=== PATIENT | female | born 2000 | race African-American/Black ===

== ENCOUNTER 2022-08-27 19:46 | Inpatient (IN) | payer OTHER, MEDICAID, SELFPAY ==
[2022-08-27 22:05] VITALS: BMI 28.9
--- NOTE | 2022-08-27 22:06 | LDADM ---
This patient, Brittney Stallings, was admitted to Labor/Delivery/Recovery 105 on 08/27/22 at 19:46. Plans for labor, pain management and were discussed with patient. Patient/family oriented to hospital policies and general routines including ID bracelet, bed and alarms, visiting hours, pain management, procedures, bathroom and other care routines, personal items, smoking policy, room service/diet and guest tray routines, security routines, and visiting hours. Patient/Family are encouraged to report perceived risks to care and to ask questions if they do not understand what they are told or what they should do. See OBIX for further documentation.
[2022-08-27 22:21] VITALS: BP 136/84; PULSE 68; RESP 18; TEMP 36.3
[2022-08-27] MEDS: LACTATED RINGERS 1,000 ML 125 ML IV CONT (22:30)
[2022-08-27 23:10] LABS: Basophils Percent Auto 0.3 % (0.2-1.2); Eosinophils Absolute Auto 0.2 K/mm3 (0-0.3); Hematocrit 35.1 % (37.0-47.0); Hemoglobin 11.8 g/dL (12.0-15.0); Immature Granulocyte Absolute 0.07 K/mm3 (0.00-0.031); Immature Granulocyte Percent A 0.9 % (0-0.5); Lymphocytes Absolute Auto 2.06 K/mm3 (0.9-3.2); Lymphocytes Percent Auto 26.7 % (18.3-44.2); Mean Corpuscular HGB Conc 33.6 g/dl (32-36); Mean Corpuscular Hemoglobin 30.5 pg (26-34); Mean Corpuscular Volume 90.7 fl (80-100); Monocytes Absolute Auto 0.5 K/mm3 (0.1-0.6); Monocytes Percent Auto 6.2 % (2.6-8.5); Neutrophils Absolute Auto 4.9 K/mm3 (1.3-6.7); Neutrophils Percent Auto 62.9 % (45.5-73.1); Platelet Count Result 161 k/mm3 (150-375); Red Blood Count 3.87 M/mm3 (4.2-5.4); Red Cell Distribution Width 12.6 % (11.5-14.5); White Blood Count 7.7 K/mm3 (4.5-10.0)
[2022-08-27 23:48] VITALS: PULSE 77; O2SAT 100
[2022-08-27 23:52] VITALS: PULSE 74; O2SAT 99
--- NOTE | 2022-08-27 23:52 | WPDANESEPP ---
Anes - Eval Pre Procedure Procedure: labor epidural Date/Time: 08/27/22 23:52 Surgeon: frankie Preop Diagnosis: pain during labor Pre Op Diagnosis: SROM Patient Data Age: 22 Gender: F Height: 1.6 m Weight: 74 kg Last Vital Signs Pulse 68 08/27/22 22:21 BP 136/84 08/27/22 22:21 Pulse Ox 100 08/27/22 23:48 O2 Del Method Room Air 08/27/22 22:05 Allergies Allergy/AdvReac Type Severity Reaction Status Date / Time No Known Allergies Allergy Mild Verified 07/07/07 01:57 Home Medications Medication Instructions Recorded Confirmed Type Classic 1 tab-cap PO DAILY 08/26/22 08/27/22 History aspirin 81 mg capsule 81 mg PO DAILY 08/26/22 08/26/22 History quetiapine 200 mg tablet (Seroquel) 200 mg PO HS 08/26/22 08/26/22 History Laboratory Tests 08/27/22 22:16 WBC 7.7 K/mm3 (4.5-10.0) RBC 3.87 L M/mm3 (4.2-5.4) Hgb 11.8 L g/dL (12.0-15.0) Hct 35.1 L % (37.0-47.0) MCV 90.7 fl (80-100) MCH 30.5 pg (26-34) MCHC 33.6 g/dl (32-36) RDW 12.6 % (11.5-14.5) Plt Count 161 k/mm3 (150-375) MPV 12.0 H fl (7.4-10.4) Immature Gran % (Auto) 0.9 H % (0-0.5) Neut % (Auto) 62.9 % (45.5-73.1) Lymph % (Auto) 26.7 % (18.3-44.2) [place] % (Auto) 6.2 % (2.6-8.5) Eos % (Auto) 3.0 % (0-4.4) Baso % (Auto) 0.3 % (0.2-1.2) Lymph # (Auto) 2.06 K/mm3 (0.9-3.2) [place] # (Auto) 0.5 K/mm3 (0.1-0.6) Eos # (Auto) 0.2 K/mm3 (0-0.3) Baso # (Auto) 0.0 K/mm3 (0.0-0.1) Abs Immat Gran (auto) 0.07 H K/mm3 (0.00-0.031) Absolute Neuts (auto) 4.9 K/mm3 (1.3-6.7) Absolute Nucleated RBC 0.0 K/mm3 (0.0-0.012) Nucleated RBC % 0.0 % (0.0-0.2) RPR Pending Patient hx anesthesia problems: none Family hx anesthesia problems: none Results Review: All pre-operative results and documents have been reviewed as part of the pre-operative evaluation. [facility] Past Medical History Medical History (Updated 08/27/22 @ 23:[address] CRNA) IUP (intrauterine ), incidental Family History Family History (Updated 08/26/22 @ 13:40 by Pippa Wing RN) Grandparent Cancer Father Malignant neoplasm of prostate Social History Social History Smoking status: Never smoker Substance use: never Lack of Transportation: No Lack of Food: Never True Current Housing: I Have Housing Concerned About Future Housing: No Difficulty Paying Gas/Electric Bills: No Difficulty Paying for Meds: No Currently Unemployed: YES Education: Bachelor's Degree Difficulty w/ Childcare or Family Care: No Spiritual care concerns: No Exam Day of Procedure 08/27/22 23:52
[2022-08-27 23:54] VITALS: BP 133/95; PULSE 80
[2022-08-27 23:57] VITALS: PULSE 81; O2SAT 100
[2022-08-28] VITALS (121 sets, daily range): BP systolic 103–178; BP diastolic 60–160; PULSE 25–152; RESP 14–18; TEMP 36.3–37.6; O2SAT 83–100
[2022-08-28] MEDS: LACTATED RINGERS 1,000 ML 125 ML IV CONT (00:17)
[2022-08-28] MEDS: FAMOTIDINE 20 MG/2 ML VIAL IV PUSH (01:18)
[2022-08-28] MEDS: diphenhydrAMINE HCl INJ 50 MG/ML VIAL 25 MG IV PUSH (03:34)
[2022-08-28] MEDS: OXYTOCIN 30 UNITS/NS 500 ML 30 UNITS/500 ML BAG 999 UNITS IV CONT (05:50)
--- NOTE | 2022-08-28 06:17 | P.PCNOB_ITS ---
OB - Delivery Note Procedure Delivery date: 08/28/22 Procedure: Induction method: None Delivery monitor: External FHT and External Uterine Route of delivery: Episiotomy description: None Laceration Description: Superficial Specimen: No Quantitative Blood Loss (ml): 100 Anesthesia type: Epidural Disposition: Floor Narrative: Patient arrived in spontaneous labor. She was given an epidural for analgesia and progressed to complete dilation. CNM to bedside. Patient began pushing with contractions and made steady progress to . She delivered the head over an intact perineum after which there was excellent restitution. There was easy delivery of the anterior and posterior shoulders. After the remainder of the was delivered he was placed on the maternal abdomen and care was transferred to the pediatric team. After 1 minute of life the cord was doubly clamped and cut. Cord blood, cord gases, and cord segment were obtained. Two superficial small lacerations were noted but did not require repair as they were hemostatic. The placenta delivered easily and uterine tone was firm. There was excellent hemostasis. All delivery counts correct. Mother and skin to skin in the delivery room [place] Baby Date of : 08/28/22 Time of : 05:49 Weeks of gestation at delivery: 38 (38.6) gender: Male Weight (pounds): 0 (unavailable at the time of note. infant skin to skin with mother. ) presentation: vertex position: Right Occiput Anterior Placenta delivery description: Spontaneous Cord Vessel Description: 3 Vessels, Clamped/Cut, Delayed Cord Clamping and Other (marginal cord insertion) score one minute: 8 score five minutes: 9
--- NOTE | 2022-08-28 06:17 | WPDOBADMIT ---
Obstetrics - Admit Note Admission Note: record reviewed. No pertinent additions to the history and/or any subsequent changes in the physical findings that are not consistent with the expected course of the were found. Additions to the history and/or subsequent changes in the physical findings follow. None.
[2022-08-28] MEDS: OXYTOCIN 30 UNITS/NS 500 ML 30 UNITS/500 ML BAG 125 UNITS IV CONT (06:23)
--- NOTE | 2022-08-28 06:27 | PM.OBDSVD ---
DS: Admitting Diagnosis Discharge Date 08/30/2022 Admitting Diagnosis labor at term DS: Discharge Diagnosis Discharge Diagnosis (1) (normal spontaneous vaginal delivery): Code(s): O80 - Encounter for full-term uncomplicated delivery Status: Acute (2) Mother currently breast-feeding: Code(s): Z39.1 - Encounter for care and examination of lactating mother Status: Acute (3) Marijuana use during : Code(s): O99.320 - Drug use complicating , unspecified trimester; F12.90 - Cannabis use, unspecified, uncomplicated Status: Acute (4) Bipolar disease in : Qualifiers: Trimester: third trimester Qualified Code(s): O99.343 - Other mental disorders complicating , third trimester; F31.9 - Bipolar disorder, unspecified Code(s): O99.340 - Other mental disorders complicating , unspecified trimester; F31.9 - Bipolar disorder, unspecified Status: Acute Assessment and Plan: Sees psychiatrist q 2 weeks. s/p care coordination consult (5) History of suicide attempt: Code(s): Z91.51 - Personal history of suicidal behavior Status: Acute OB - DS: Summary Hospital Course Hospital Course: uncomplicated OB Procedures : Ultrasound OB Procedures Intrapartum: Spontaneous Vag Delivery OB Procedures: : None Peripartum Data Delivery Method: Natural Vaginal Laceration Description: Superficial Episiotomy description: None complications: none Status at Discharge Functional status at discharge: independent ambulation Overall status at discharge: patient is progressing back to baseline Time Spent with Patient Time attestation: Total time spent providing and/or coordinating discharge services: Exam Narrative: Alert and oriented. Mood is pleasant and cooperative. Urinating without difficulty. Denies passing any large clots. Perineum with no edema. Fundus firm and below umbilicus. +bonding observed Const: General: cooperative, healthy appearing, no acute distress and alert Orientation/consciousness: patient oriented x3 Limitations: no limitations Resp: Effort & Inspection: normal respiratory effort Auscultation: clear to auscultation bilaterally Cardio: Rate: regular rate GI: Inspection: normal to inspection Neuro: General: patient oriented x3 Extrem: General: normal to inspection Psych: Appearance: grossly normal Mental Status: mental status grossly normal Affect: normal affect Thought process: Normal thought process present DS: Data Data Completed and Pending Labs on day of discharge: Labs from last 24 hours 08/27/22 22:16 WBC 7.7 RBC 3.87 L Hgb 11.8 L Hct 35.1 L MCV 90.7 MCH 30.5 MCHC 33.6 RDW 12.6 Plt Count 161 MPV 12.0 H Immature Gran % (Auto) 0.9 H Neut % (Auto) 62.9 Lymph % (Auto) 26.7 [place] % (Auto) 6.2 Eos % (Auto) 3.0 Baso % (Auto) 0.3 Lymph # (Auto) 2.06 [place] # (Auto) 0.5 Eos # (Auto) 0.2 Baso # (Auto) 0.0 Abs Immat Gran (auto) 0.07 H Absolute Neuts (auto) 4.9 Absolute Nucleated RBC 0.0 Nucleated RBC % 0.0 RPR Pending Blood Type B Positive Antibody Screen Negative Discharge Plan Discharge Attending physician on discharge: Yelena Long Discharging Clinician: Margie Lombardi Patient Disposition: Home, Self-Care Activity: may shower Diet: as tolerated Discharge Instructions: Continue taking your vitamin and any other supplements as previously directed (Examples: Iron, Vitamin D). You may take Tylenol 1000mg over the counter every 6 hours as needed for pain. Do not exceed 4000mg of Tylenol daily. You may continue using tucks pads and dermoplast spray if needed for a few more days. RECOMMEND making appointment with your psychiatrist for 1-2 weeks . Patient Instructions: Antibiotic Form Stand Alone Forms: General Discharge Information Follow-up/Referrals:
--- NOTE | 2022-08-28 08:17 | OBPPTRN ---
Patient transferred to post room # 281 via wheelchair. Support person present. Oriented to unit, room, information board, rooming in, admission packet and security measures. Patient verbalizes understanding.
[2022-08-28] MEDS: MULTIVIT/MIN/PREN/FOL AC/IRON TABLET 1 TAB PO (10:54)
--- NOTE | 2022-08-28 11:28 | PC.NURSE ---
[id number] Introductions were made, then consulted with patient to assess needs related to . Mother led the conversation with her?plans to feed?her infant and the?experience so far. Resources provided for inpatient and outpatient services with the feeding sheet, mom/baby guide and name written on the white board. Mother voiced understanding of information and requests assistance. Mother works with her with encouragement and education. Encouraged understanding of the benefits of skin to skin (demonstrating unwrapping infant and placing upright on her chest), stimulating with massage touch, changing positions to encourage wakefulness, how to watch for early feeding cues, responsive feeding, feeding on demand (aiming for 8-12 times in 24 hours, about every 2-3 hours), milk production, hand expression, building/maintaining a milk supply, duration of feeding, signs of adequate intake/output and how to record on the feeding sheet. Mother is able to spray human milk from her breast with hand expression. Reviewed positioning and ear, shoulder, hip alignment, supporting the breast to facilitate a deep latch, asymmetrical latch (off-center), leading with the chin with a big, open, wide gape and body close to mother. latched optimally to the right breast in football position. Education given to mother of how to visualize suck/swallow ratios and listen for drinking at the breast. was able to maintain latch without discomfort to mother. Nipple care reviewed with optimal latch and good positioning. Reviewed good handwashing when or touching the breast/nipples to prevent infection. Encouraged father of baby involvement to assist with infant and mother giving him suggestions on how he can support and help. Resources used to facilitate learning were used with the tool, mom and baby guide. Mother voiced understanding of skin to skin, stimulating with massage touch, responsive feedings, hand expressed colostrum, talking to infant to encourage if it has been 2 -2.5 hours since the start of the last , to call if infant does not latch, or if there is discomfort with . Resources provided for inpatient/outpatient with feeding sheet and the mom/baby guide. Parents voiced understanding of information, demonstrated learning and will call if there is a request for assistance. Reported to the primary RN. [id number] Purposefully rounded to assess needs. Mother states she latched to the left breast independently without pain and observed swallowing. Primary RN is present in the room.
[2022-08-28] MEDS: IBUPROFEN 600 MG TABLET PO ×2 (11:31→22:36)
[2022-08-28 13:43] LABS: Rapid Plasma Reagin Non-Reactive (NonReactive)
--- NOTE | 2022-08-28 14:21 | PCCCNOTE ---
Care Coordination: Met with pt. who reports she and baby boy will be living at [address], [address], [place] [address]. Pt. reports will be living with her S.O. Carmen Pang. Pt. reports having a support system including her mother Leeann, sister Kahlil, [facility] [place], and best friend Anne Marie. Pt. reports having baby supplies and already established with [facility] [place]. Pt. denies involvement with DCFS and denies drug use during . Pt. has history of bipolar disorder and anxiety. Pt. is prescribed Seroquel. Pt. has history of suicide attempts in 2019 and 2021. Pt. denies any recent self harming thoughts. Pt. reports current with Kandy Adams with [facility] via Zoom, every two weeks. resources, counseling resources, and psychiatrist resources provided to pt.
--- NOTE | 2022-08-28 16:13 | PC.NURSE ---
1545 - Primary RN reported that mother had attempted to breastfeed on her own without success and initiated pumping. 1615 - Breast pump provided by Primary RN due to ineffective (no latch) latching. Patient was assessed for correct placement, flange size, to pump for comfort and nipple stretching/stimulation for adequate milk production every 3 hours (8 times in 24 hours) 1-2 times at night. Mother voiced understanding of the education shared along with mom and baby guide for additional resource information. Mother was encouraged with the amount of milk already being pumped out of her breast. Discussed syringe feeding and storing half of the pumped milk. Reported to the primary RN.
[2022-08-28] MEDS: QUEtiapine FUMARATE 100 MG TABLET 200 MG PO (22:32)
[2022-08-29 04:45] VITALS: BP 109/61; PULSE 79; RESP 18; TEMP 36.7
[2022-08-29 04:51] LABS: Hematocrit 31.6 % (37.0-47.0); Hemoglobin 10.7 g/dL (12.0-15.0)
[2022-08-29 07:20] VITALS: BP 112/76; PULSE 69; RESP 18; TEMP 36.7
[2022-08-29] MEDS: MULTIVIT/MIN/PREN/FOL AC/IRON TABLET 1 TAB PO (10:16)
[2022-08-29] MEDS: IBUPROFEN 600 MG TABLET PO ×2 (10:16→22:46)
--- NOTE | 2022-08-29 11:34 | P.PNOB_ITS ---
OB - PN: Subj Subjective Date/time seen: 08/29/22 11:31 Interval history: PPD 1 from . Urinating and having BMs without issues. Pain very well controlled with Motrin. Reports some difficulty getting to latch. Hand epression sheet given. Encouraged hand expression and pumping q 2-3 hours during the day if not latching. Patient comments: no complaints and pain well controlled baby status: doing well and other [place] feeding status: exclusively breast feeding (and breast pumping) OB - PN: Obj Data Labs 08/29/22 04:46 Labs: Laboratory Results - last 24 hr 08/27/22 08/29/22 22:16 04:46 Hgb 10.7 L Hct 31.6 L RPR Non-reactive OB - PN A/P Plan day: 1 Plan: routine care Time Spent With Patient Time: Total time spent is greater than 50% in coordination of care (as documented) at patient's floor/unit and/or counseling patient: Review of Systems Review of Systems: All systems reviewed & are unremarkable except as noted in HPI and below Exam Narrative: Alert and oriented. Mood is pleasant and cooperative. Urinating without diff iculty. Denies passing any large clots. Perineum with minimal edema. Fundus firm and below umbilicus. Const: General: cooperative, healthy appearing, no acute distress and alert Orientation/consciousness: patient oriented x3 Limitations: no limitations Resp: Effort & Inspection: normal respiratory effort Auscultation: clear to auscultation bilaterally Cardio: Rate: regular rate GI: Inspection: normal to inspection Neuro: General: patient oriented x3 Extrem: General: normal to inspection Psych: Appearance: grossly normal Mental Status: mental status grossly normal Affect: normal affect Thought process: Normal thought process present
--- NOTE | 2022-08-29 13:56 | WPDANLDPN2 ---
Anes-Prog Note L&D Date/Time: 08/29/22 13:56 Comfortable throughout: labor and delivery Neuraxial method: epidural Epidural/Spinal procedure site: clean & non-tender Neuro status: Neuro function grossly intact. Cardiovascular status: normal Respiratory status: normal Airway patency: baseline Mental status: baseline Post-Op hydration status: normal Vital Signs: Last Vital Signs Temp 98.0 F 08/29/22 07:20 Pulse 69 08/29/22 07:20 Resp 18 08/29/22 07:20 BP 112/76 08/29/22 07:20 Pulse Ox 99 08/28/22 12:07 O2 Del Method Room Air 08/27/22 22:05 Pain score (VAS): 0 I/O: Intake & Output 08/28/22 08/29/22 08/29/22 23:59 07:59 15:59 Intake Total 240 Balance 240 Post-procedural complaints: none Patient feedback: Patient satisfied with anesthetic care.
[2022-08-29 20:40] VITALS: BP 126/88; PULSE 75; RESP 18; TEMP 37
[2022-08-30] MEDS: DOCUSATE SODIUM 100 MG CAPSULE PO (08:49)
[2022-08-30] MEDS: MULTIVIT/MIN/PREN/FOL AC/IRON TABLET 1 TAB PO (08:49)
[2022-08-30 08:50] VITALS: BP 138/93; PULSE 80; RESP 18; TEMP 36.4; O2SAT 99
--- NOTE | 2022-08-30 09:51 | P.PNOB_ITS ---
OB - PN: Subj Subjective Date/time seen: 08/30/22 09:51 Interval history: PPD 2 from . Urinating and having BMs without issues. Pain very well controlled with Motrin. Reports improvement getting infant to latch. Hand epression sheet given yesterday. Encouraged hand expression and pumping q 2-3 hours during the day if infant not latching. Reviewed PP resources Patient comments: no complaints and pain well controlled [place] baby status: nursing well (sleepy at breast. Supplementing with formula) [place] feeding status: breast and bottle feeding OB - PN: Obj Data Labs 08/29/22 04:46 OB - PN A/P Plan day: 2 Plan: discharge home Time Spent With Patient Time: Total time spent is greater than 50% in coordination of care (as documented) at patient's floor/unit and/or counseling patient: Review of Systems Review of Systems: All systems reviewed & are unremarkable except as noted in HPI and below Exam Narrative: Alert and oriented. Mood is pleasant and cooperative. Urinating without difficulty. Denies passing any large clots. Perineum with no edema. Fundus firm and below umbilicus. +bonding observed Const: General: cooperative, healthy appearing, no acute distress and alert Orientation/consciousness: patient oriented x3 Limitations: no limitations Resp: Effort & Inspection: normal respiratory effort Auscultation: clear to auscultation bilaterally Cardio: Rate: regular rate GI: Inspection: normal to inspection Neuro: General: patient oriented x3 Extrem: General: normal to inspection Psych: Appearance: grossly normal Mental Status: mental status grossly normal Affect: normal affect Thought process: Normal thought process present
--- NOTE | 2022-08-30 16:44 | PC.NURSE ---
Patient viewed the discharge video Mother & Baby Care, The First Two Weeks . Patient was given the opportunity and encouraged to ask questions. Patient verbalized understanding of information shared and has been given the mother/baby guide for home reference.
== END 2022-08-30 12:16 | disposition home or self-care (01) | DRG 806 ==
LOC: ANHLDR 08-28 06:32 → ANHOB2 08-28 08:20
PROVIDERS: Advanced Practice Midwife; Admitting Provider Obstetrics & Gynecology Gynecology; PCP Family Medicine; Visit Provider Obstetrics & Gynecology Gynecology
DX: O43.123 Velamentous insertion of umbilical cord, third trimester (principal); O99.323 Drug use complicating pregnancy, third trimester; Z37.0 Single live birth; Z3A.38 38 weeks gestation of pregnancy; F12.90 Cannabis use, unspecified, uncomplicated; O99.344 Other mental disorders complicating childbirth; F31.9 Bipolar disorder, unspecified; Z91.51 Personal history of suicidal behavior
CPT/HCPCS: 36415; 84112; 85014; 85018; 85025; 86592; 86850; 86900; 86901; A9270; J1200; J2590; J2795; J7120